=== PATIENT | female | born 1990 | race African-American/Black ===

== ENCOUNTER 2021-07-25 14:54 | Emergency (ER) | payer MEDICAID, OTHER ==
[~2021-07-25] VITALS: Ht 170.2 cm; Wt 78.5 kg
--- NOTE | 2021-07-25 15:18 | NUR ---
PT SEEN AND EVALUATED BY DR CIFUENTES.
[2021-07-25] MEDS ORDERED: IBUP-1957 PO (15:25)
[2021-07-25] MEDS ORDERED: HYDR-4209 PO (15:25)
[2021-07-25] MEDS ORDERED: OMEP20CA15 PO (15:25)
[2021-07-25] MEDS ORDERED: CHLO473M3 PO (15:29)
[2021-07-25 15:38] VITALS: BP 149/46
== END 2021-07-25 15:38 | disposition home or self-care (01) ==
LOC: ER 14:54
DX: K05.00 Acute gingivitis, plaque induced (principal); K02.9 Dental caries, unspecified; K04.01 Reversible pulpitis; I34.0 Nonrheumatic mitral (valve) insufficiency
CPT/HCPCS: A4663